=== PATIENT | female | born 2000 | race Caucasian/White ===

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

== ENCOUNTER 2019-02-01 09:20 | Emergency (ER) | payer OTHER ==
[~2019-02-01] VITALS: Ht 165.1 cm; Wt 68.5 kg
[2019-02-01 09:25] VITALS: Ht 165.1 cm; Wt 68.5 kg
[2019-02-01 10:16] LABS: BASOPHIL % 0.4 % (0-2); PLATELET COUNT 344 x10^3mcL (130-400)
[2019-02-01 10:17] LABS: RED CELL DISTRIBUTION WIDTH 15.3 % (11.5-14.5)
[2019-02-01 10:23] LABS: ALKALINE PHOSPHATASE 44 U/L (46-116); ALT/SGPT 17 U/L (14-59); AST/SGOT 42 U/L (15-37); BILIRUBIN TOTAL 0.63 mg/dL (0.20-1.00); CALCIUM 9.1 mg/dL (8.5-10.1); CARBON DIOXIDE 25.2 mmol/L (21-32); CHLORIDE SERUM 103 mmol/L (98-107); CREATININE SERUM 0.4 mg/dL (0.6-1.0); GFR1 > 60 mL/min; GLUCOSE SERUM 88 mg/dL (74-106); SODIUM SERUM 137 mmol/L (136-145); TOTAL PROTEIN, SERUM 7.2 g/dL (6.4-8.2)
[2019-02-01 10:25] LABS: UA SPECIFIC GRAVITY 1.015 (1.005-1.035); microscopic required? YES; urine erythrocyte NEGATIVE (NEGATIVE)
[2019-02-01 10:28] LABS: ALBUMIN 3.3 g/dL (3.4-5.0); POTASSIUM SERUM 5.6 mmol/L (3.5-5.1)
[2019-02-01 11:34] VITALS: BP 92/58
== END 2019-02-01 11:34 | disposition home or self-care (01) ==
LOC: ED 09:20
PROVIDERS: Emergency Medicine
DX: O21.0 Mild hyperemesis gravidarum (principal); O23.41 Unspecified infection of urinary tract in pregnancy, first trimester; O99.341 Other mental disorders complicating pregnancy, first trimester; O99.511 Diseases of the respiratory system complicating pregnancy, first trimester; O99.611 Diseases of the digestive system complicating pregnancy, first trimester; K92.89 Other specified diseases of the digestive system; F41.9 Anxiety disorder, unspecified; G89.29 Other chronic pain; G43.909 Migraine, unspecified, not intractable, without status migrainosus; Z3A.12 12 weeks gestation of pregnancy; Z87.442 Personal history of urinary calculi
CPT/HCPCS: J2405; J7030

== ENCOUNTER 2019-04-01 07:51 | Emergency (ER) | payer OTHER ==
[~2019-04-01] VITALS: Ht 165.1 cm; Wt 71.7 kg
[2019-04-01 08:01] VITALS: BP 106/63; Ht 165.1 cm; Wt 71.7 kg
== END 2019-04-01 09:20 | disposition home or self-care (01) ==
LOC: ED 07:51
DX: O21.0 Mild hyperemesis gravidarum (principal); H61.22 Impacted cerumen, left ear; Z3A.12 12 weeks gestation of pregnancy

== ENCOUNTER 2019-06-21 20:55 | Emergency (ER) | payer OTHER ==
[~2019-06-21] VITALS: Ht 165.1 cm; Wt 83.5 kg
[2019-06-21 21:06] VITALS: Ht 165.1 cm; Wt 83.5 kg
[2019-06-21 21:44] LABS: BASOPHIL % 0.2 % (0-2); PLATELET COUNT 389 x10^3mcL (130-400)
[2019-06-21 21:47] LABS: CALCIUM 8.5 mg/dL (8.5-10.1); CARBON DIOXIDE 23.5 mmol/L (21-32); CHLORIDE SERUM 104 mmol/L (98-107); CREATININE SERUM 0.5 mg/dL (0.6-1.0); GFR1 > 60 mL/min; GLUCOSE SERUM 83 mg/dL (74-106); POTASSIUM SERUM 4.3 mmol/L (3.5-5.1); SODIUM SERUM 139 mmol/L (136-145)
[2019-06-21 21:52] LABS: ALKALINE PHOSPHATASE 81 U/L (46-116); ALT/SGPT 14 U/L (14-59); AST/SGOT 9 U/L (15-37); BILIRUBIN TOTAL 0.2 mg/dL (0.20-1.00); LIPASE 96 IU/L (73-393); TOTAL PROTEIN, SERUM 6.6 g/dL (6.4-8.2)
[2019-06-21 21:56] LABS: ALBUMIN 2.4 g/dL (3.4-5.0)
[2019-06-21 22:22] VITALS: BP 111/63
== END 2019-06-21 22:23 | disposition home or self-care (01) ==
LOC: ED 20:55
PROVIDERS: Emergency Medicine
DX: O23.43 Unspecified infection of urinary tract in pregnancy, third trimester (principal); J45.909 Unspecified asthma, uncomplicated; G43.909 Migraine, unspecified, not intractable, without status migrainosus; F41.9 Anxiety disorder, unspecified; Z98.890 Other specified postprocedural states; Z3A.32 32 weeks gestation of pregnancy
CPT/HCPCS: J2405; J7030

== ENCOUNTER 2020-06-02 17:40 | Emergency (ER) | payer SELFPAY ==
[~2020-06-02] VITALS: Ht 167.6 cm; Wt 75.3 kg
[2020-06-02 17:48] VITALS: Ht 167.6 cm; Wt 75.3 kg
[2020-06-02 18:52] LABS: BASOPHIL % 0.3 % (0-2); PLATELET COUNT 390 x10^3mcL (130-400); RED CELL DISTRIBUTION WIDTH 16.3 % (11.5-14.5)
[2020-06-02 19:59] VITALS: BP 100/71
== END 2020-06-02 19:59 | disposition home or self-care (01) ==
LOC: ED 17:40
PROVIDERS: Emergency Medicine
DX: O23.41 Unspecified infection of urinary tract in pregnancy, first trimester (principal); N83.202 Unspecified ovarian cyst, left side; J45.909 Unspecified asthma, uncomplicated; Z87.442 Personal history of urinary calculi
CPT/HCPCS: Q0092

== ENCOUNTER 2020-06-17 17:59 | Emergency (ER) | payer SELFPAY ==
[~2020-06-17] VITALS: Ht 167.6 cm; Wt 74.8 kg
[2020-06-17 18:14] VITALS: Ht 167.6 cm; Wt 74.8 kg
[2020-06-17 19:20] LABS: BASOPHIL % 0.4 % (0-2); PLATELET COUNT 373 x10^3mcL (130-400)
[2020-06-17 19:21] LABS: RED CELL DISTRIBUTION WIDTH 15.6 % (11.5-14.5)
[2020-06-17 19:39] LABS: CALCIUM 9.1 mg/dL (8.5-10.1); CARBON DIOXIDE 31.2 mmol/L (21-32); CHLORIDE SERUM 104 mmol/L (98-107); CREATININE SERUM 0.7 mg/dL (0.6-1.0); GFR1 > 60 mL/min; GLUCOSE SERUM 85 mg/dL (74-106); POTASSIUM SERUM 3.5 mmol/L (3.5-5.1); SODIUM SERUM 137 mmol/L (136-145)
[2020-06-17 19:43] LABS: ALBUMIN 3.6 g/dL (3.4-5.0); ALKALINE PHOSPHATASE 61 U/L (46-116); ALT/SGPT 20 U/L (14-59); AST/SGOT 15 U/L (15-37); BILIRUBIN TOTAL 0.5 mg/dL (0.20-1.00); LIPASE 71 IU/L (73-393); TOTAL PROTEIN, SERUM 6.8 g/dL (6.4-8.2)
[2020-06-17 20:15] VITALS: BP 131/68
== END 2020-06-17 20:15 | disposition home or self-care (01) ==
LOC: ED 17:59
PROVIDERS: Emergency Medicine
DX: O26.891 Other specified pregnancy related conditions, first trimester (principal); R10.2 Pelvic and perineal pain; J45.909 Unspecified asthma, uncomplicated; G43.909 Migraine, unspecified, not intractable, without status migrainosus; Z3A.01 Less than 8 weeks gestation of pregnancy; Z87.42 Personal history of other diseases of the female genital tract; Z98.890 Other specified postprocedural states
CPT/HCPCS: Q0162

== ENCOUNTER 2020-06-19 09:53 | Emergency (ER) | payer SELFPAY ==
[~2020-06-19] VITALS: Ht 167.6 cm; Wt 74.8 kg
[2020-06-19 09:56] VITALS: Ht 167.6 cm; Wt 74.8 kg
[2020-06-19 11:37] LABS: BASOPHIL % 0.4 % (0-2); PLATELET COUNT 360 x10^3mcL (130-400)
[2020-06-19 11:38] LABS: RED CELL DISTRIBUTION WIDTH 15.7 % (11.5-14.5)
[2020-06-19 13:20] VITALS: BP 98/70
== END 2020-06-19 13:20 | disposition home or self-care (01) ==
LOC: ED 09:53
PROVIDERS: Emergency Medicine
DX: O26.891 Other specified pregnancy related conditions, first trimester (principal); R10.2 Pelvic and perineal pain; O99.511 Diseases of the respiratory system complicating pregnancy, first trimester; K21.9 Gastro-esophageal reflux disease without esophagitis; G43.909 Migraine, unspecified, not intractable, without status migrainosus; Z3A.00 Weeks of gestation of pregnancy not specified; Z20.828 Contact with and (suspected) exposure to other viral communicable diseases
CPT/HCPCS: Q0162; U0003